=== PATIENT | male | born 1960 | race Caucasian/White ===

== ENCOUNTER 2018-07-26 09:19 | Inpatient (IN) | payer OTHER ==
[2018-07-26 09:54] VITALS: BMI 22.3
--- NOTE | 2018-07-26 11:05 | HP ---
COWS - Scale Resting Pulse: 0= [place] 80 or Below Sweatin= Chills/Flushing Restless Observation: 0= Sits Still Pupil Size: 0= Normal to Room Light Bone or Joint Aches: 2= Severe Diffuse Aches Runny Nose/ Eye Tearin= None GI Upset > 30mins: 0= None Tremor Observation: 1= Tremor [place], Not Seen Yawning Observation: 0= None Anxiety or Irritability: 2=Irritable/Anxious Goose Flesh Skin: 0=Smooth Skin COWS Score: 6 CIWA Score Nausea/Vomitin-No Nausea/No Vomiting Muscle Tremors: 1-None Visible, but [place] Anxiety: 4-Mod. Anxious/Guarded Agitation: 0-Normal Activity Paroxysmal Sweats: 2 Orientation: 3-Disoriented Date>2 days Tacttile Disturbances: 0-None Auditory Disturbances: 0-None Visual Disturbances: 0-None Headache: 2-Mild CIWA-Ar Total Score: 12 - Admission Criteria OASAS Guidelines: Admission for Medically Managed Detox: Requires at least one of the followin. CIWA greater than 12 2. Seizures within the past 24 hours 3. Delirium tremens within the past 24 hours 4. Hallucinations within the past 24 hours 5. Acute intervention needed for co occurring medical disorder 6. Acute intervention needed for co occurring psychiatric disorder 7. Severe withdrawal that cannot be handled at a lower level of care (continued vomiting, continued diarrhea, abnormal vital signs) requiring intravenous medication and/or fluids 8. Admission ROS [facility] Allergies/Adverse Reactions: Allergies Allergy/AdvReac Type Severity Reaction Status Date / Time No Known Allergies Allergy Verified 07/26/18 09:49 History of Present Illness: pt here requesting detox from opiate and xanax use , claims 4 xanax /day and 1 bundle heroin ivdu in [facility] , needles from the exchange , denies sharing or re-using , first age of use 19 , denies abscess , denies OD , latest use yesterday , current symptoms as above . cocaine : 4 bags / day ivdu cannabis : " sometimes " tobacco - denies PMHX : htn on hctz did not bring meds pshx : denies psych : depression on no meds , denies SI / HI . Exam Limitations: Clinical Condition, Intoxication - Ebola screening Have you traveled outside of the country in the last 21 days: No Have you had contact with anyone from an Ebola affected area: No Do you have a fever: No - Review of Systems Constitutional: See HPI EENT: reports: See HPI, Other (glasses dentures upper and lower) Respiratory: reports: No Symptoms reported Cardiac: reports: No Symptoms Reported GI: reports: See HPI : reports: No Symptoms Reported Musculoskeletal: reports: No Symptoms Reported Integumentary: reports: See HPI Neuro: reports: See HPI Endocrine: reports: No Symptoms Reported Psychiatric: reports: Anxious, Depressed, Disorientated Patient History - Smoking Cessation Smoking history: Smoker current status UNK - Substances abused Heroin Substance route: Injection Frequency: Daily Amount used: 10BAGS Age of first use: 17 Date of last use: 07/25/18 Cocaine Substance route: Injection Frequency: Daily Amount used: 4BAGS Age of first use: 18 Date of last use: 07/25/18 Alprazolam (Xanax) Other (specify): 2MG Substance route: Oral Frequency: Daily Amount used: 2MG- 8TABS Age of first use: 31 Date of last use: 07/25/18 Family Disease History - Family Disease History Family History: Unable to Obtain (pt drowsy , asleep , awakened by verbal stimuli , gives minimal monosyllabic answers to questions) Admission Physical Exam S - Vital Signs Vital Signs: Vital Signs - 24 hr 07/26/18 09:48 Temperature 96.9 F L Pulse Rate 70 Respiratory 18 Rate Blood Pressure 133/78 - Physical General Appearance: Yes: Disheveled, Mild Distress, Intoxicated, Irritable, Anxious, Other (drowsy , falls asleep frequently during interview , awakened by verbal stimuli) HEENTM: Yes: Hearing grossly Normal, Normocephalic, Normal Voice Respiratory: Yes: Chest Non-Tender, Lungs Clear, Normal Breath Sounds Neck: Yes: No masses,lesions,Nodules, Trachea in good position Cardiology: Yes: Regular Rhythm, Regular Rate, S1, S2 Abdominal: Yes: Normal Bowel Sounds, Non Tender, Soft Back: Yes: Normal Inspection Musculoskeletal: Yes: Gait Steady Extremities: Yes: Normal Range of Motion, Non-Tender Neurological: Yes: Motor Strength 5/5, Confused, Disoriented, Depressed Affect, Other (drowsy) Integumentary: Yes: Warm, Track Samuels - Diagnostic (1) Sedative, hypnotic or anxiolytic abuse Current Visit: Yes Status: Acute (2) Opioid abuse with intoxication Current Visit: Yes Status: Acute Breathalyzer - Breathalyzer Breathalyzer: 0 Urine Drug Screen - Test Device Lot number: [id number] Expiration date: 04/07/20 - Control Is test valid?: Yes - Results Drug screen NEGATIVE: No Urine drug screen results: THC-Marijuana, LEO-Cocaine, FEN-Fentanyl, MOP-Opiates , BZO-Benzodiazepines Inpatient Rehab Admission - Rehab Decision to Admit Inpatient rehab admission?: No
[2018-07-26] MEDS ORDERED: chlordiazePOXIDE HCL 10 MG CAPSULE PO PRN (11:19)
[2018-07-26] MEDS ORDERED: BISMUTH SUBSALICYLATE 524 MG/30 ML UD PO PRN (11:19)
[2018-07-26] MEDS ORDERED: hydrOXYzine PAMOATE 25 MG CAPSULE (FP) PO PRN (11:19)
[2018-07-26] MEDS ORDERED: IBUPROFEN 400 MG TABLET (FP) PO PRN (11:19)
[2018-07-26] MEDS ORDERED: MAGNESIUM HYDROX 2400MG/30ML ORAL SUSPENSION 30 ML CUP PO PRN (11:19)
[2018-07-26] MEDS ORDERED: MAG HYDROX/AL HYDROX/SIMETH 30 ML UNIT-DOSE CUP PO PRN (11:19)
[2018-07-26] MEDS ORDERED: MENTHOL/PHENOL 1 EACH UD MM PRN (11:19)
[2018-07-26] MEDS ORDERED: MAGNESIUM CITRATE 300 ML BOTTLE PO PRN (11:19)
[2018-07-26] MEDS ORDERED: ACETAMINOPHEN 325 MG TABLET (FP) PO PRN ×2 (11:19)
[2018-07-26] MEDS ORDERED: BISMUTH SUBSALICYLATE 262 MG/15 ML BTL PO PRN (11:58)
[2018-07-26] MEDS: chlordiazePOXIDE HCL 25 MG CAPSULE PO SCH ×2 (12:11→20:11)
[2018-07-26] MEDS: MELATONIN 5 MG TABLETS PO PRN (22:30)
[2018-07-26] MEDS: THIAMINE HCL 100 MG TABLET (FP) PO SCH (22:30)
[2018-07-26] MEDS ORDERED: METHADONE HCL 10 MG TABLET (FOR DETOX USE ONLY) PO ONE (23:00)
[2018-07-27] MEDS: chlordiazePOXIDE HCL 25 MG CAPSULE PO SCH (06:05)
[2018-07-27] MEDS ORDERED: METHADONE HCL 10 MG TABLET (FOR DETOX USE ONLY) PO ONE (10:00)
[2018-07-27] MEDS: LOSARTAN POTASSIUM 50 MG TABLET (FP) PO SCH (10:47)
[2018-07-27] MEDS: PRENATAL VITAMINS W/ FOLIC ACID TABLET (FP) PO SCH (10:48)
[2018-07-27] MEDS: HYDROCHLOROTHIAZIDE 25 MG TABLET (FP) PO SCH (10:48)
[2018-07-27] MEDS: diazePAM 5 MG TABLET PO PRN (10:49)
[2018-07-27 11:28] LABS: HEMATOCRIT 40.3 % (35.4-49); HEMOGLOBIN 14.5 GM/dL (11.7-16.9); MCH 33.9 pg (25.7-33.7); MCHC 35.9 g/dl (32.0-35.9); MEAN CELL VOLUME 94.6 fl (80-96); PLATELET COUNT 112 K/MM3 (134-434); RBC 4.26 M/mm3 (4.00-5.60); RDW 13.4 % (11.9-15.9); WHITE BLOOD COUNT 6.3 K/mm3 (4.0-10.0)
--- NOTE | 2018-07-27 11:30 | PN ---
[facility] CIWA - CIWA Score Nausea/Vomitin-No Nausea/No Vomiting Muscle Tremors: 4-Moderate,w/Arms Extend Anxiety: 4-Mod. Anxious/Guarded Agitation: 4-Moderately Restless Paroxysmal Sweats: 3 Orientation: 0-Oriented Tacttile Disturbances: 0-None Auditory Disturbances: 0-None Visual Disturbances: 0-None Headache: 0-None Present CIWA-Ar Total Score: 15 S COWS - Scale Resting Pulse: 0= [place] 80 or Below Sweatin=Flushed/Facial Moisture Restless Observation: 1= Difficult to Sit Still Pupil Size: 0= Normal to Room Light Bone or Joint Aches: 2= Severe Diffuse Aches Runny Nose/ Eye Tearin= Nasal Congestion GI Upset > 30mins: 0= None Tremor Observation of Outstretched Hands: 2= Slight Tremor Visible Yawning Observation: 2= >3x During Session Anxiety or Irritability: 2=Irritable/Anxious Goose Flesh Skin: 0=Smooth Skin COWS Score: 12 S Progress Note (SOAP) Subjective: sweats shakes irritable anxiety i want a valium taper not librium Objective: 07/27/18 11:29 Vital Signs Temperature 98.1 F 07/27/18 08:15 Pulse Rate 59 L 07/27/18 08:15 Respiratory Rate 18 07/27/18 08:15 Blood Pressure 111/74 07/27/18 08:15 O2 Sat by Pulse Oximetry (%) labs pending aaox3 ambulating no acute distress Assessment: 07/27/18 11:29 withdrawal sx Plan: continue detox increase fluids libirum d/c will start pt on valium taper as per his request.
[2018-07-27 12:03] LABS: ALBUMIN 3.2 g/dl (3.4-5.0); BLOOD UREA NITROGEN 10.5 mg/dL (7-18); CALCIUM 8.3 mg/dL (8.5-10.1); POTASSIUM 3.2 mmol/L (3.5-5.1)
[2018-07-27] MEDS ORDERED: chlordiazePOXIDE 5 MG CAPSULE PO SCH (13:00)
[2018-07-27] MEDS: diazePAM 5 MG TABLET PO SCH ×2 (14:58→22:06)
[2018-07-27] MEDS: THIAMINE HCL 100 MG TABLET (FP) PO SCH (22:05)
[2018-07-27] MEDS: MELATONIN 5 MG TABLETS PO PRN (22:06)
[2018-07-28] MEDS: diazePAM 5 MG TABLET PO SCH ×3 (07:35→22:11)
[2018-07-28] MEDS ORDERED: METHADONE HCL 10 MG TABLET (FOR DETOX USE ONLY) PO ONE (10:00)
[2018-07-28] MEDS: PRENATAL VITAMINS W/ FOLIC ACID TABLET (FP) PO SCH (10:26)
[2018-07-28] MEDS: LOSARTAN POTASSIUM 50 MG TABLET (FP) PO SCH (10:27)
[2018-07-28] MEDS: HYDROCHLOROTHIAZIDE 25 MG TABLET (FP) PO SCH (10:27)
[2018-07-28] MEDS: diazePAM 5 MG TABLET PO PRN (10:30)
--- NOTE | 2018-07-28 10:59 | PN ---
S CIWA - CIWA Score Nausea/Vomitin-No Nausea/No Vomiting Muscle Tremors: 3 Anxiety: 2 Agitation: 2 Paroxysmal Sweats: No Perspiration Orientation: 0-Oriented Tacttile Disturbances: 0-None Auditory Disturbances: 0-None Visual Disturbances: 0-None Headache: 0-None Present CIWA-Ar Total Score: 7 BHS Progress Note (SOAP) Subjective: feeling much better sweats little anxiety Objective: 07/28/18 10:57 Vital Signs Temperature 97.9 F 07/28/18 09:23 Pulse Rate 62 07/28/18 09:23 Respiratory Rate 18 07/28/18 09:23 Blood Pressure 118/68 07/28/18 09:23 O2 Sat by Pulse Oximetry (%) Laboratory Tests 07/27/18 07/27/18 07/27/18 09:20 09:20 09:20 WBC 6.3 RBC 4.26 Hgb 14.5 Hct 40.3 MCV 94.6 MCH 33.9 H MCHC 35.9 RDW 13.4 Plt Count 112 L MPV 9.0 Sodium 145 Potassium 3.2 L Chloride 110 H Carbon Dioxide 28 Anion Gap 8 BUN 10.5 Creatinine 1.0 Est GFR (CKD-EPI)AfAm 96.40 Est GFR (CKD-EPI)NonAf 83.18 Random Glucose 85 Calcium 8.3 L Total Bilirubin 2.0 H AST 46 H ALT 28 Alkaline Phosphatase 104 Total Protein 7.0 Albumin 3.2 L RPR Titer Nonreactive labs noted hypokalemia 3.2; will replenish aaox3 ambulating no acute distress Assessment: 07/28/18 10:58 mild withdrawal sx Plan: continue detox increase fluids [id number] [id number] day ordered d/c in am
[2018-07-28] MEDS ORDERED: POTASSIUM CHLORIDE TABS 20 MEQ TABLET.ER (FP) PO SCH (11:30)
[2018-07-28] MEDS ORDERED: chlordiazePOXIDE HCL 10 MG CAPSULE PO PRN (13:00)
[2018-07-28] MEDS ORDERED: chlordiazePOXIDE HCL 10 MG CAPSULE PO SCH (13:00)
[2018-07-28 21:36] VITALS: TEMP 97.7
[2018-07-28] MEDS: THIAMINE HCL 100 MG TABLET (FP) PO SCH (22:12)
[2018-07-29] MEDS ORDERED: diazePAM 5 MG TABLET PO ONE (06:00)
[2018-07-29 06:43] VITALS: BP 100/58; PULSE 54
--- NOTE | 2018-07-29 09:45 | DS ---
[facility] Detox Discharge Summary Admission Date: 07/26/18 Discharge Date: 07/29/18 - History Present History: Opioid Dependence, Sedative Dependence - Physical Exam Results Vital Signs: Vital Signs Temperature 97.7 F 07/29/18 06:00 Pulse Rate 54 L 07/29/18 06:00 Respiratory Rate 16 07/29/18 06:00 Blood Pressure 100/58 L 07/29/18 06:00 O2 Sat by Pulse Oximetry (%) - Treatment Hospital Course: Detox Protocol Followed, Detoxed Safely, Responded well, Discharged Condition Good, Rehab Referral Accepted - Medication Discharge Medications: Ambulatory Orders Hydrochlorothiazide [Hctz -] 25 mg PO DAILY 07/26/18 Losartan Potassium [Cozaar] 100 mg PO DAILY 07/26/18 - Diagnosis (1) Opioid abuse with intoxication Current Visit: Yes Status: Chronic (2) Sedative, hypnotic or anxiolytic abuse Current Visit: Yes Status: Chronic - AMA Did Patient Leave Against Medical Advice: No (pt referred to outpatient rehab. )
[2018-07-29] MEDS ORDERED: METHADONE HCL 10 MG TABLET (FOR DETOX USE ONLY) PO ONE (10:00)
[2018-07-30] MEDS ORDERED: METHADONE HCL 5 MG TABLET (FOR DETOX USE ONLY) PO ONE (06:00)
== END 2018-07-29 09:05 | disposition home or self-care (01) | DRG 773 ==
LOC: YASAS 09:19 → Y6N 11:45
PROVIDERS: ADMIT Surgery; ATTEND Surgery
PROC: HZ2ZZZZ Detoxification Services for Substance Abuse Treatment (ICD-10-PCS; principal; 2018-07-26)
DX: F11.129 Opioid abuse with intoxication, unspecified (principal); F13.10 Sedative, hypnotic or anxiolytic abuse, uncomplicated; F32.9 Major depressive disorder, single episode, unspecified; I10 Essential (primary) hypertension; E87.6 Hypokalemia
CPT/HCPCS: 36415; 80053; 85027; 86593